=== PATIENT | male | born 1990 | race Asian ===

== ENCOUNTER → 2021-09-03 | Emergency (ER) | payer SELFPAY ==
--- NOTE | 2021-09-03 20:15 | NUR ---
PATIENT LEFT WITHOUT BEING SEEN BY DR. ATWOOD. NO FURTHER CARE PROVIDED FOR PATIENT.
== END | disposition left against medical advice (07) ==
LOC: MED 19:20
DX: Z53.21 Procedure and treatment not carried out due to patient leaving prior to being seen by health care provider (principal)